=== PATIENT | female | born 1940 | race Caucasian/White ===

== ENCOUNTER 2022-03-27 10:31 | Outpatient (CLI) | payer OTHER ==
[~2022-03-27] VITALS: Ht 147.3 cm; Wt 53.5 kg
== END 2022-03-27 15:43 | disposition home or self-care (01) ==
LOC: LAB 10:31
PROVIDERS: ATTEND Orthopaedic Surgery
DX: Z76.89 Persons encountering health services in other specified circumstances (principal); I10 Essential (primary) hypertension; I49.9 Cardiac arrhythmia, unspecified; D64.9 Anemia, unspecified; E88.9 Metabolic disorder, unspecified; D68.8 Other specified coagulation defects; N39.0 Urinary tract infection, site not specified; E11.9 Type 2 diabetes mellitus without complications; A49.02 Methicillin resistant Staphylococcus aureus infection, unspecified site

== ENCOUNTER 2022-04-01 08:30 | Inpatient (IN) | payer OTHER ==
[~2022-04-01] VITALS: Ht 149.9 cm; Wt 53.5 kg
[2022-04-01] MEDS ORDERED: SYNTHROID50 MCG PO (14:32)
[2022-04-01] MEDS ORDERED: AVAPRO150 MG PO (14:33)
[2022-04-01] MEDS ORDERED: TOPROL XL25 M1 PO (14:33)
[2022-04-01] MEDS ORDERED: ZOCOR20 MG PO (14:34)
[2022-04-07] MEDS ORDERED: GABAPENTIN100 M2 (07:49)
[2022-04-07] MEDS ORDERED: IBANDRONATE SO150 MG (07:50)
[2022-04-07] MEDS ORDERED: XARELTO10 M1 (07:50)
== END 2022-04-10 23:11 | disposition home or self-care (01) | DRG 470 ==
LOC: SURH 04-07 05:45 → O/R 04-07 05:45 → SURH 04-07 07:00
PROVIDERS: ADMIT Orthopaedic Surgery; ATTEND Orthopaedic Surgery
PROC: 0SR90J9 Replacement of Right Hip Joint with Synthetic Substitute, Cemented, Open Approach (ICD-10-PCS; principal; 2022-04-07 07:00)
DX: M17.11 Unilateral primary osteoarthritis, right knee (principal); I10 Essential (primary) hypertension; E03.8 Other specified hypothyroidism; Z20.822 Contact with and (suspected) exposure to COVID-19